=== PATIENT | male | born 1955 | race African-American/Black ===

== ENCOUNTER → 2020-04-29 | Outpatient (CLI) | payer OTHER ==
[~2020-04-29] MED LIST: ALDACTONE25 MG PO; ASPIR 8181 MG PO; CARVEDILOL12.5 MG PO; FISH OIL 1,001000 M2 PO; FLONASE 0.05%50 MCG NASAL; GLYBURIDE-METF1 EACH PO; PRILOSEC20 MG PO; PROGLITAZONE
== END ==
LOC: SJCVCIMAG 07:26
PROVIDERS: ATTEND Internal Medicine Cardiovascular Disease
DX: I37.1 Nonrheumatic pulmonary valve insufficiency (principal); I11.9 Hypertensive heart disease without heart failure; R00.0 Tachycardia, unspecified; I49.3 Ventricular premature depolarization; I44.7 Left bundle-branch block, unspecified; I25.10 Atherosclerotic heart disease of native coronary artery without angina pectoris; I25.5 Ischemic cardiomyopathy; I42.9 Cardiomyopathy, unspecified; F17.200 Nicotine dependence, unspecified, uncomplicated; Z95.0 Presence of cardiac pacemaker; Z79.899 Other long term (current) drug therapy

== ENCOUNTER → 2021-03-11 | Outpatient (CLI) | payer OTHER | LOC: SJCVCIMAG 11:36 | PROVIDERS: ATTEND Internal Medicine Cardiovascular Disease | DX: I10 Essential (primary) hypertension (principal) ==